=== PATIENT | female | born 1975 | race Caucasian/White ===

== ENCOUNTER 2016-10-14 14:58 | Emergency (ER) | payer OTHER ==
[~2016-10-14] VITALS: Ht 157.5 cm; Wt 52.3 kg
[~2016-10-14 14:58] MED LIST: BENADRYL50 MG PO; PEPCID20 MG PO; PREDNISONE20 MG PO
[2016-10-14 16:28] VITALS: BP 138/90
== END 2016-10-14 16:31 | disposition home or self-care (01) ==
LOC: EME 14:58
DX: F41.9 Anxiety disorder, unspecified (principal); I25.2 Old myocardial infarction; Z98.2 Presence of cerebrospinal fluid drainage device; F17.200 Nicotine dependence, unspecified, uncomplicated
CPT/HCPCS: 99281; 99284